=== PATIENT | male | born 1945 | race Caucasian/White ===

== ENCOUNTER 2017-12-17 14:09 | Inpatient (IN) | payer OTHER, MEDICARE ==
[~2017-12-17] VITALS: Ht 185.4 cm; Wt 117.0 kg
[~2017-12-17 14:09] MED LIST: ATORVASTATIN CA40 M1 PO; CLOPIDOGREL75 M1 PO; FUROSEMIDE20 M1 PO; GABAPENTIN300 M2 PO; LISINOPRIL-HCT1 EAC1 PO; METFORMIN HCL500 M3 PO; METOPROLOL TART25 M1 PO; MOVANTIK25 M1 PO; OMEPRAZOLE40 M1 PO; OXYCODONE HCL10 M2 PO; VERAPAMIL ER240 M1 PO
--- NOTE | 2017-12-17 15:39 | ED UPPER/LOWER EXTREMITY COMPL ---
History of Present Illness General Chief Complaint: Lower Extremity Problems Stated Complaint: PT IS HAVING PAIN THE RT LEG Source: patient, family, old records Exam Limitations: no limitations Vital Signs & Intake/Output Vital Signs & Intake/Output Vital Signs Date Time Temp Pulse Resp B/P B/P Pulse O2 O2 Flow FiO2 Mean Ox Delivery Rate 12/17 1414 98.0 63 20 108/64 93 Room Air Allergies Coded Allergies: No Known Allergies (08/11/16) Reconcile Medications Atorvastatin Calcium 40 MG TABLET 1 TAB PO DAILY HIGH CHOLESTEROL (Reported) Clopidogrel Bisulfate (Clopidogrel) 75 MG TABLET 1 TAB PO DAILY (Reported) Furosemide 20 MG TABLET 1 TAB PO DAILY FLUID (Reported) Gabapentin 300 MG CAPSULE 1 CAP PO TID NEUROPATHY (Reported) Lisinopril/Hydrochlorothiazide (Lisinopril-Hctz 20-25 MG Tab) 20 MG-25 MG TABLET 1 TAB PO DAILY HTN (Reported) Metformin HCl 500 MG TABLET 1 TAB PO BID DM (Reported) Metoprolol Tartrate 25 MG TABLET 1 TAB PO BID BP (Reported) Naloxegol Oxalate (Movantik) 25 MG TABLET 1 TAB PO DAILY CONSTIPATION Omeprazole 40 MG CAPSULE.DR 1 CAP PO DAILY GERD (Reported) Oxycodone HCl 10 MG TABLET 1 TAB PO 4XDP PAIN (Reported) Verapamil HCl (Verapamil ER) 240 MG TABLET.ER 1 TAB PO DAILY HTN (Reported) Triage Note: PT TO ED C/O RIGHT LEG PAIN X 3 WEEKS. HAS TAKEN OXYCODONE FOR PAIN "IT TAKES THE EDGE OFF". STATES RECENT FALL, BUT LEG WAS HURTING PRIOR TO FALL. Triage Nurses Notes Reviewed? yes Onset: Gradual Duration: day(s): Timing: recent history Severity: moderate Pain/Injury Location: Right: Hip, Leg. HPI: 72yo male with hx of chronic back pain, gout, DM, HTN, CAD s/p stents presents to ED complaining of pain in right hip and leg x 1.5 weeks. Patient states that he has had bilateral lower extremity swelling x 3 weeks. He also reports "gout flare up" for the past 1.5 weeks of his left great toe. He has a history of gout and states he had edema of lower legs relating to his gout in the past. Patient states that about 4 days ago he fell relating to his swelling, landing on his back. He states no significant musculoskeletal injury at that time. Patient reports his of bilateral peripheral neuropathy and diminished sensation in toes. Patient admits to recent intermittent dyspnea on exertion. Patient denies chest pain, fevers, chills, vomiting, hip/leg injury. (Mariann Wren) Past History Travel History Traveled to [place] past 21 day No Medical History Any Pertinent Medical History? see below for history Cardiovascular: hypertension, STENTS HIGH CHOLESTEROL Gastrointestinal: ACID REFLUX CONSTIPATION Musculoskeletal: gout Endocrine: DIABETIC Surgical History Surgical History: cardiac stents Psychosocial History What is your primary language Zambian Tobacco Use: Never used ETOH Use: denies use Illicit Drug Use: denies illicit drug use Family History Hx Contributory? No (Mariann Wren) Review of Systems Review of Systems Constitutional: Reports: no symptoms. EENTM: Reports: no symptoms. Respiratory: Reports: see HPI. Cardiovascular: Reports: see HPI. Gastrointestinal/Abdominal: Reports: no symptoms. Genitourinary: Reports: no symptoms. Musculoskeletal: Reports: see HPI. Skin: Reports: no symptoms. Neurological/Psychological: Reports: no symptoms. Hematologic/Endocrine: Reports: no symptoms. Immunological: Reports: no symptoms. All Other Systems: Reviewed and Negative (Mariann Wren) Physical Exam Physical Exam General Appearance: well developed/nourished, no apparent distress, alert, awake Head: atraumatic, normal appearance Eyes: Bilateral: normal appearance. Ears, Nose, Throat: hearing grossly normal Neck: normal inspection, supple, full range of motion Cardiovascular/Respiratory: normal breath sounds, regular rate/rhythm, no respiratory distress Back: normal inspection, normal range of motion Leg Left: 1-2+ pitting edema Leg Right: 1-2+ pitting edema Hip Left: normal range of motion, normal inspection Hip Right: lateral hip tenderness with ROM intact Knee Left: normal range of motion, normal inspection Knee Right: normal range of motion, normal inspection Foot Left: erythema to great toe without warmth or tenderness Foot Right: normal inspection, normal range of motion Neurologic/Tendon: sensation to foot and toes diminished, strength to bilateral lower extremities 5/5 equally Skin: warm/dry, erythema of L great toe (Mariann Wren) Progress Differential Diagnosis: cellulitis, CHF, contusion, DVT, gout, septic arthritis, sprain, MALIHA Plan of Care: Orders Procedure Date/time Status Heart Healthy Diet 12/18 B Active URINALYSIS 12/17 1807 Active Patient Data 12/17 1758 Active ED Holding Orders 12/17 1754 Active Admit to inpatient 12/17 1754 Active Vital Signs 12/17 1754 Active Code Status 12/17 1754 Active Add-on Test (ER Only) 12/17 1625 Active EKG 12/17 1625 Active TROPONIN LEVEL 12/17 1538 Complete COMPREHENSIVE METABOLIC PANEL 12/17 1538 Complete CBC WITHOUT DIFFERENTIAL 12/17 1538 Complete B-TYPE NATRIURETIC PEP (BNP) 12/17 1538 Complete Current Medications Sig/Fabian Start time Last Medication Dose Stop Time Status Admin Sodium Chloride 1,000 ML ONCE ONE 12/17 1745 AC (Normal Saline 0.9%) 12/18 0024 Laboratory Tests 12/17/17 1633: Anion Gap 17 H, Estimated GFR 31 L, BUN/Creatinine Ratio 33.3 H, Glucose 110 H, Calcium 8.4, Total Bilirubin 0.9, AST 35, ALT 39, Alkaline Phosphatase 58, Troponin I < 0.01, Tls-E-Szhhmctaryg Pept 118, Total Protein 7.9, Albumin 4.7, Globulin 3.2, Albumin/Globulin Ratio 1.5, CBC w Diff MAN DIFF ORDERED, RBC 4.39 L, MCV 84.6, MCH 27.7, MCHC 32.7 L, RDW 15.1 H, MPV 9.4, Gran % 78.1 H, Lymphocytes % 13.3 L, Monocytes % 4.9, Eosinophils % 3.1, Basophils % 0.6, Absolute Granulocytes 13.1 H, Segmented Neutrophils 76 H, Band Neutrophils 1, Absolute Lymphocytes 2.2, Lymphocytes 12 L, Monocytes 5, Absolute Monocytes 0.8 H, Eosinophils 3, Absolute Eosinophils 0.5, Basophils 3 H, Absolute Basophils 0.1, Platelet Estimate VERIFIED BY SMEAR, Normocytic RBCs VERIFIED, Normochromic RBCs VERIFIED, Fld Total RBCs Counted 100 Patient's imaging studies are WNL, no DVT, no CHF. Labs show MALIHA, new compared to prior labs. Patient reports no hx of known abnormal kidney function. Patient started on IV fluids. Discussed this patient with Dr. Guadalupe, patient requires hospital admission for MALIHA. Discussed with case management who recommend full admission. Spoke with hospitalist Dr. Knowles regarding this patient's general medicine admission. Diagnostic Imaging: Viewed by Me: Radiology Read, Ultrasound. Discussed w/RAD: Radiology Read, Ultrasound. Radiology Impression: PATIENT: APRYL MUÑIZ PRESENT AGE: 72 PATIENT ACCOUNT NO: [id number] : 43 LOCATION: [facility] ORDERING PHYSICIAN: Mariann GARCIA SERVICE DATE: 12/17/17 EXAM TYPE: US - US-EXT BILAT VENOUS DOPPLER EXAMINATION: US TRIPLEX OF LOWER EXTREMITIES, BILATERAL CLINICAL INFORMATION: This is a 72-year-old male with bilateral lower extremity pain. Edema and swelling. COMPARISON: None TECHNIQUE: Color-flow triplex imaging with spectral analysis and compression Doppler were performed on the lower extremities. The study was somewhat limited because of significant patient motion during the examination. FINDINGS: Respiratory variation, normal compression and augmented flow are noted throughout the lower extremities. The visualized common femoral vein, superficial femoral vein, profunda femoral vein, popliteal venous segments show no evidence of deep venous thrombosis. The calf veins could not be visualized. There is no Eastman's cyst. IMPRESSION: Normal triplex scan without evidence of deep venous thrombosis involving the lower extremities. DICTATED BY: Dave Locke MD DATE/TIME DICTATED:12/17/171639 TUBE TRAILER FILLER:KATALINA DATE/TIME TRANSCRIBED:1639 CONFIDENTIAL, DO NOT COPY WITHOUT APPROPRIATE AUTHORIZATION. < Electronically signed in Other Vendor System> SIGNED BY: Dave Locke MD 12/17/17 1645 CXR Impression: PATIENT: APRYL MUÑIZ PRESENT AGE : 72 PATIENT ACCOUNT NO: [id number] : 43 LOCATION: [facility] ORDERING PHYSICIAN: Mariann GARCIA SERVICE DATE: 12/17/17 EXAM TYPE: RAD - XRY-CHEST XRAY, TWO VIEWS EXAMINATION: CHEST 2 VIEWS CLINICAL INFORMATION: Congestion. Edema. COMPARISON: 09/08/2007. TECHNIQUE: PA and lateral views of the chest were obtained. FINDINGS: The cardiac silhouette is not enlarged. The mediastinal and hilar contours are unremarkable. There are neither pleural effusions nor pneumothoraces. There are no consolidations. The osseous structures are stable. IMPRESSION: No evidence for acute disease. DICTATED BY: Etienne Lynch MD DATE/TIME DICTATED:12/17/171627 TUBE TRAILER FILLER:[email or web address] DATE/TIME TRANSCRIBED:04/20/18 / 1628 CONFIDENTIAL, DO NOT COPY WITHOUT APPROPRIATE AUTHORIZATION. <Electronically signed in Other Vendor System> SIGNED BY: Etienne Lynch MD 12/17/17 1632 Initial ED EKG: sinus rhythm @83bpm, first degree AV block, nonspecific ST changes (Mariann Wren) Departure Departure Disposition: STILL A PATIENT Condition: Stable Referrals: Ever Jones APRN (PCP/Family) Departure Forms: Customer Survey General Discharge Information Admission Note Spoke With: Rajani Knowles MD Documentation of Exam: Documentation of any treatments & extenuating circumstances including Concerns Regarding Discharge (functional status, medication knowledge or non-compliance, living conditions, etc.) that warrant an admission rather than observation: [MALIHA with no known history of kidney disease requiring IV fludis, repeat labs, possible nephrology consult, premature discharge medically unsafe] (Mariann Wren) Departure Clinical Impression Primary Impression: MALIHA (acute kidney injury) Secondary Impressions: Pedal edema PA/DISSOLVER OPERATOR Co-Sign Statement Statement: ED Attending supervision documentation- [X] I saw and evaluated the patient. I have also reviewed all the pertinent lab results and diagnostic results. I agree with the findings and the plan of care as documented in the PA's/DISSOLVER OPERATOR's documentation. [X] I have reviewed the ED Record and agree with the PA's/DISSOLVER OPERATOR's documentation. [] Additions or exceptions (if any) to the PAs/DISSOLVER OPERATOR's note and plan are summarized below: [Patient to be admitted for acute renal injury. Patient does have pedal edema however he needs IV fluids at this time. Patient will need a renal consultation. High risk for early discharge.] (Anayeli IGNACIO,Prakash Jorgensen)
--- NOTE | 2017-12-17 16:32 | RADIOLOGY REPORT ---
EXAMINATION: CHEST 2 VIEWS CLINICAL INFORMATION: Congestion. Edema. COMPARISON: 09/08/2007. TECHNIQUE: PA and lateral views of the chest were obtained. FINDINGS: The cardiac silhouette is not enlarged. The mediastinal and hilar contours are unremarkable. There are neither pleural effusions nor pneumothoraces. There are no consolidations. The osseous structures are stable. IMPRESSION: No evidence for acute disease.
--- NOTE | 2017-12-17 16:45 | ULTRASOUND REPORT ---
EXAMINATION: US TRIPLEX OF LOWER EXTREMITIES, BILATERAL CLINICAL INFORMATION: This is a 72-year-old male with bilateral lower extremity pain. Edema and swelling. COMPARISON: None TECHNIQUE: Color-flow triplex imaging with spectral analysis and compression Doppler were performed on the lower extremities. The study was somewhat limited because of significant patient motion during the examination. FINDINGS: Respiratory variation, normal compression and augmented flow are noted throughout the lower extremities. The visualized common femoral vein, superficial femoral vein, profunda femoral vein, popliteal venous segments show no evidence of deep venous thrombosis. The calf veins could not be visualized. There is no Eastman's cyst. IMPRESSION: Normal triplex scan without evidence of deep venous thrombosis involving the lower extremities.
[2017-12-17 16:47] LABS: ABSOLUTE BASOPHIL COUNT 0.1 /CUMM (0.0-0.2); ABSOLUTE EOSINOPHIL COUNT 0.5 /CUMM (0.0-0.7); ABSOLUTE GRANULOCYTE CT 13.1 /CUMM (1.4-6.5); ABSOLUTE LYMPH COUNT 2.2 /CUMM (1.2-3.4); ABSOLUTE MONOCYTE COUNT 0.8 /CUMM (0.10-0.60); BASOPHIL % 0.6 % (0.0-2.0); EOSINOPHIL % 3.1 % (0-5); HEMATOCRIT 37.2 % (42-52); MEAN CORPUSCULAR HGB 27.7 PG (27.0-31.0); MEAN CORPUSCULAR HGB CONC 32.7 G/DL (33.0-37.0); MEAN CORPUSCULAR VOLUME 84.6 FL (80.0-94.0); MEAN PLATELET VOLUME 9.4 FL (7.4-10.4); PLATELET COUNT 264 /CUMM (130-400); RBC DISTRIBUTION WIDTH 15.1 % (11.5-14.5); RED BLOOD CELL CT 4.39 /CUMM (4.70-6.10); WHITE BLOOD CELL COUNT 16.7 /CUMM (4.8-10.8)
[2017-12-17 16:59] LABS: GRANULOCYTE % 78.1 % (42.2-75.2)
--- NOTE | 2017-12-17 17:59 | History & Physical ---
General Information and HPI MD Statement: I have seen and personally examined APRYL MUÑIZ and documented this H&P. The patient is a 72 year old M who presented with a patient stated chief complaint of [LEG PAIN]. Source of Information: patient Allergies/Medications Allergies: Coded Allergies: No Known Allergies (08/11/16) Home Med list Aspirin (Ecotrin*) 325 MG TABLET.DR 1 TAB PO QPM HEART/BLOOD (Reported) Atorvastatin Calcium 40 MG TABLET 1 TAB PO DAILY HIGH CHOLESTEROL (Reported) Buspirone HCl 5 MG TABLET 1-2 TAB PO PRN ANXIETY (Reported) Calcium (Elemental-Fr Calcarb) (Tums Ultra) 400 MG CALCIUM (1,000 MG) TAB.CHEW 1 TAB PO PRN GI (Reported) Clopidogrel Bisulfate (Clopidogrel) 75 MG TABLET 1 TAB PO DAILY (Reported) Furosemide 40 MG TABLET 1 TAB PO QAM DIURETIC (Reported) Gabapentin (Neurontin) 300 MG CAPSULE 1 CAP PO DAILY NERVE PAIN (Reported) Gluc Hunter/MSM/Magnesium/Vit C (Glucosamine Complex-MSM Cap) 1 EACH CAPSULE 2 CAP PO DAILY SUPPLEMENT (Reported) Lisinopril/Hydrochlorothiazide (Lisinopril-Hctz 20-25 MG Tab) 20 MG-25 MG TABLET 1 TAB PO BID BP (Reported) Melatonin (Unknown Strength) CAPSULE (Unknown Dose) PO QPM PRN SUPPLEMENT ( Reported) Menthol (Icy Hot No Mess) (Unknown Strength) LIQUID (Unknown Dose) TOP PRN PAIN (Reported) Metformin HCl 500 MG TABLET 1 TAB PO BID DM (Reported) Metoprolol Succinate 25 MG TAB 1 TAB PO DAILY HEART/BP (Reported) Multiple Vitamin (Multivitamins) 1 EACH TABLET 1 TAB PO DAILY SUPPLEMENT ( Reported) Naproxen Sodium (All Day Relief) 220 MG TABLET 1-2 TAB PO Q8-12H PRN PAIN/ INFLAMMATION (Reported) Moosup-3 Fatty Acids (Super Moosup-3) 1,000 MG CAPSULE 1 CAP PO TID SUPPLEMENT (Reported) Omeprazole 40 MG CAPSULE. 1 CAP PO DAILY GERD (Reported) Oxycodone HCl 10 MG TABLET 1 TAB PO Q4-6H PRN PAIN (Reported) Polyethylene Glycol 3350 (Miralax) 17 GRAM POWD.PACK 1 PAC PO PRN GI ( Reported) dissolve in water Sennosides (Senna) 8.6 MG TABLET 1 TAB PO BID GI (Reported) Past History Travel History Traveled to [place] past 21 day No Medical History Cardiovascular: hypertension, STENTS HIGH CHOLESTEROL Gastrointestinal: ACID REFLUX CONSTIPATION Musculoskeletal: gout Endocrine: DIABETIC Surgical History Surgical History: cardiac stents Past Family/Social History Psychosocial History ETOH Use: denies use Illicit Drug Use: denies illicit drug use Exam & Diagnostic Data Last 24 Hrs of Vital Signs/I&O Vital Signs Date Time Temp Pulse Resp B/P B/P Pulse O2 O2 Flow FiO2 Mean Ox Delivery Rate 12/17 1414 98.0 63 20 108/64 93 Room Air Intake & Output 12/17 1600 12/17 0800 12/17 0000 Intake Total Output Total Balance Patient 117.027 kg Weight Weight Estimated Measurement Method Core Measures/Misc (05/16) Acute Coronary Syndrome ACS Diagnosis: No Congestive Heart Failure Congestive Heart Failure Diagnosis No Cerebrovascular Accident CVA/TIA Diagnosis: No VTE (View Protocol) VTE Risk Factors Acute Medical Illness No Mechanical VTE Prophylaxis d/t N/A MechProphylax Ordered No VTE Pharm Prophylaxis d/t NA PharmProphylax ordered Sepsis (View protocol) Sepsis Present: No
--- NOTE | 2017-12-17 18:13 | History & Physical ---
Reji Welsh MD 12/17/171812: General Information and HPI Source of Information: patient History of Present Illness: Mr. Allen is a 72-year-old male with past medical history of coronary artery disease status post stents followed by Dr. Prieto, hypertension, hyperlipidemia , gout, diabetes mellitus complicated by peripheral neuropathy who presents with pain in his right leg. The patient says that he experiences electric-like pain that shoots down from his back to his right hip and right knee that is worse with flexion. The pain started couple months ago but has progressed significantly in the past few days. He also notes that he has been treating himself for gout in the left toe with 6 naproxen per day. He is also been falling more often recently because he is on these in his feet secondary to the neuropathy. He denies any loss of consciousness or head strike. He says he has not been drinking as much fluids recently. Review of systems also positive for shortness of breath, chills, fatigue, and floaters/dryness in the eyes. He is a never smoker, drinks alcohol socially, and denies recreational drug use. Allergies/Medications Allergies: Coded Allergies: No Known Allergies (08/11/16) Home Med list Aspirin (Ecotrin*) 325 MG TABLET.DR 1 TAB PO QPM HEART/BLOOD (Reported) Atorvastatin Calcium 40 MG TABLET 1 TAB PO DAILY HIGH CHOLESTEROL (Reported) Buspirone HCl 5 MG TABLET 1-2 TAB PO PRN ANXIETY (Reported) Calcium (Elemental-Fr Calcarb) (Tums Ultra) 400 MG CALCIUM (1,000 MG) TAB.CHEW 1 TAB PO PRN GI (Reported) Clopidogrel Bisulfate (Clopidogrel) 75 MG TABLET 1 TAB PO DAILY (Reported) Furosemide 40 MG TABLET 1 TAB PO QAM DIURETIC (Reported) Gabapentin (Neurontin) 300 MG CAPSULE 1 CAP PO DAILY NERVE PAIN (Reported) Gluc Hunter/MSM/Magnesium/Vit C (Glucosamine Complex-MSM Cap) 1 EACH CAPSULE 2 CAP PO DAILY SUPPLEMENT (Reported) Lisinopril/Hydrochlorothiazide (Lisinopril-Hctz 20-25 MG Tab) 20 MG-25 MG TABLET 1 TAB PO BID BP (Reported) Melatonin (Unknown Strength) CAPSULE (Unknown Dose) PO QPM PRN SUPPLEMENT ( Reported) Menthol (Icy Hot No Mess) (Unknown Strength) LIQUID (Unknown Dose) TOP PRN PAIN (Reported) Metformin HCl 500 MG TABLET 1 TAB PO BID DM (Reported) Metoprolol Succinate 25 MG TAB 1 TAB PO DAILY HEART/BP (Reported) Multiple Vitamin (Multivitamins) 1 EACH TABLET 1 TAB PO DAILY SUPPLEMENT ( Reported) Naproxen Sodium (All Day Relief) 220 MG TABLET 1-2 TAB PO Q8-12H PRN PAIN/ INFLAMMATION (Reported) Monroe-3 Fatty Acids (Super Monroe-3) 1,000 MG CAPSULE 1 CAP PO TID SUPPLEMENT (Reported) Omeprazole 40 MG CAPSULE.DR 1 CAP PO DAILY GERD (Reported) Oxycodone HCl 10 MG TABLET 1 TAB PO Q4-6H PRN PAIN (Reported) Polyethylene Glycol 3350 (Miralax) 17 GRAM POWD.PACK 1 PAC PO PRN GI ( Reported) dissolve in water Sennosides (Senna) 8.6 MG TABLET 1 TAB PO BID GI (Reported) Past History Travel History Traveled to [place] past 21 day No Medical History Cardiovascular: hypertension, STENTS HIGH CHOLESTEROL Gastrointestinal: ACID REFLUX CONSTIPATION Musculoskeletal: gout Endocrine: DIABETIC Surgical History Surgical History: cardiac stents Past Family/Social History Psychosocial History ETOH Use: denies use Illicit Drug Use: denies illicit drug use Review of Systems Review of Systems Constitutional: Reports: see HPI. EENTM: Reports: see HPI. Cardiovascular: Reports: no symptoms. Respiratory: Reports: see HPI. GI: Reports: no symptoms. Genitourinary: Reports: see HPI. Musculoskeletal: Reports: see HPI. Skin: Reports: no symptoms. Neurological/Psychological: Reports: no symptoms. Hematologic/Endocrine: Reports: no symptoms. Immunologic/Allergic: Reports: no symptoms. All Other Systems: Reviewed and Negative Exam & Diagnostic Data Last 24 Hrs of Vital Signs/I&O Vital Signs Date Time Temp Pulse Resp B/P B/P Pulse O2 O2 Flow FiO2 Mean Ox Delivery Rate 12/17 1414 98.0 63 20 108/64 93 Room Air Intake & Output 12/17 1600 12/17 0800 12/17 0000 Intake Total Output Total Balance Patient 117.027 kg Weight Weight Estimated Measurement Method Physical Exam General Appearance Alert, Oriented X3, Cooperative, No Acute Distress Skin No Rashes, No Breakdown, No Significant Lesion Cardiovascular Regular Rate, Normal S1, Normal S2 Lungs Clear to Auscultation Abdomen Normal Bowel Sounds, Soft, No Tenderness, obese Neurological Normal Speech, Strength at 5/5 X4 Ext, Normal Tone, Cranial Nerves 3-12 NL, absent senation below knees Extremities Left toe erythematous and warm. Straight leg raise positive on right. Rectal normal rectal tone Last 24 Hrs of Labs/[place]: Laboratory Tests 12/17/17 1633: Anion Gap 17 H, Estimated GFR 31 L, BUN/Creatinine Ratio 33.3 H, Glucose 110 H, Calcium 8.4, Total Bilirubin 0.9, AST 35, ALT 39, Alkaline Phosphatase 58, Troponin I < 0.01, Pop-Y-Bbrjxgslfcx Pept 118, Total Protein 7.9, Albumin 4.7, Globulin 3.2, Albumin/Globulin Ratio 1.5, CBC w Diff MAN DIFF ORDERED, RBC 4.39 L, MCV 84.6, MCH 27.7, MCHC 32.7 L, RDW 15.1 H, MPV 9.4, Gran % 78.1 H, Lymphocytes % 13.3 L, Monocytes % 4.9, Eosinophils % 3.1, Basophils % 0.6, Absolute Granulocytes 13.1 H, Segmented Neutrophils 76 H, Band Neutrophils 1, Absolute Lymphocytes 2.2, Lymphocytes 12 L, Monocytes 5, Absolute Monocytes 0.8 H, Eosinophils 3, Absolute Eosinophils 0.5, Basophils 3 H, Absolute Basophils 0.1, Platelet Estimate VERIFIED BY SMEAR, Normocytic RBCs VERIFIED, Normochromic RBCs VERIFIED, Fld Total RBCs Counted 100 Assessment/Plan Assessment: Mr. Allen is a 72-year-old male with past medical history of coronary artery disease status post stents followed by Dr. Prieto, hypertension, hyperlipidemia , gout, diabetes mellitus complicated by peripheral neuropathy who presents with pain in his right leg. On presentation, vital signs were T 98.0, HR 63, RR 20, BP 108/64, saturating 93 percent on room air. Laboratories were significant for white blood cell count 16.7, 1 band, hemoglobin 12.2, MCV 84.6, chloride 92, B1 70, creatinine 2.1 ( baseline 1.4 phosphorus sees, normal LFTs. Chest x-ray was negative. Ultrasound did not show DVT. He will be admitted to general medicine and treated for the following problems: 1. Acute kidney injury 2. Acute lumbosacral radiculopathy 3. Acute gout 4. Leukocytosis 5. Normocytic anemia #Acute kidney injury: Patient reports taking heavy doses of naproxen. He is also on diuretics and hasn't been drinking as well recently. This is likely ATN versus prerenal azotemia or a combination. -Avoid nephrotoxins -Gentle IV fluid hydration -TTE -Renal ultrasound in the morning -nephrology consult -Urinalysis and urine electrolytes #Acute lumbosacral radiculopathy: Patient seems to have a history of back pain with imaging of his back many years ago. However this seems like an acute worsening. He does not have any saddle anesthesia but he does have leukocytosis. -CT lumbar spine -Pain control -PT consults #Acute gout: Patient has erythematous left great toe with pain and history of gout. -Prednisone 40 mg daily for 5-10 days #Normocytic anemia: Likely chronic disease -Iron studies #Chronic medical problem: -Continue home medications DVT prophylaxis with heparin Consistent carbohydrate 2 diet Full code As Ranked By This Provider Problem List: 1. MALIHA (acute kidney injury) Core Measures/Misc (05/16) Acute Coronary Syndrome ACS Diagnosis: No Congestive Heart Failure Congestive Heart Failure Diagnosis No Cerebrovascular Accident CVA/TIA Diagnosis: No VTE (View Protocol) VTE Risk Factors Acute Medical Illness No Mechanical VTE Prophylaxis d/t N/A MechProphylax Ordered No VTE Pharm Prophylaxis d/t NA PharmProphylax ordered Sepsis (View protocol) Sepsis Present: No Nae Dunn MD 12/17/172022: Resident Review Statement Resident Statement: examined this patient, discussed with product management internship, agreed with product management internship, discussed with family, reviewed EMR data (avail), discussed with nursing , discussed with case mgmt, reviewed images, amended to note Other Findings: Patient is an 2-year-old male with past medical history significant for CAD status post PCI with stent placement, hypertension, hyperlipidemia, 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 Patient had opiate induced constipation for which he started taking more NSAIDS than opiates for the past 6 months, this is followed by increase in back pain for the past 3 months which got progressively worse in the past 6-8 weeks. As pain progressed he started taking more naproxen around 6 pills/day in the last few weeks. He also started to experience left great toe swelling and erythema for the past few weeks which are better with naproxen although persistent. He started noticing swelling in the legs and foot due to which he gradually decreased fluid intake and continue to take his diuretics. His pain got progressively worse for which he refilled his pain medications today and came to ER for further evaluation. He had a fall 3 days ago which appears purely mechanical, denies any head strike , did have lacerations on his left hand. Vital signs at admission Afebrile, heart rate 63, blood pressure 100/64 mmHg, saturating 93% on room air Physical exam Alert oriented 3 HEENT PERRLA and extraocular movements intact Heart S1-S2 normal Lungs clear to auscultation Abdomen distended, normal bowel sounds soft no tenderness Upper extremities - lacerations on left upper extremities Lower extremities - 4+ pitting edema, erythema of left great toe nontender Neuro - cranial struggle 12 intact, no sensory problems, strength 5 out of 5 Normal rectal tone. Straight leg raising test positive Labs White count 16.7, H&H 12/37, platelets 264. Sodium 137, potassium 4.2, chloride 92, anion gap 17, BUN/creatinine 70/2.1, GFR 31, glucose 110. Urinalysis is clear with pH 6.0, negative for WBC, protein, ketones, nitrates. 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 Associated with recent increased intake of NSAID (naproxen) due to opiate induced constipation. Due to worsening of lower extremities and difficulty with ambulation he decreased hydrating and continued to take diuretics and NSAIDs. He also had apparent mechanical fall recently 3 days ago during which he didnt hurt his head. VS are unremarkable. Physical exam significant for clear lungs, normal bowel sounds, 4+ pitting edema, left great toe erythema, intact rectal tone, skin lesions on left arm. Labs did show white count of 16 with agranulocytosis and 1 band. BUN/Cr 70/2.1 (1.4 on 02/12). GFR 31. clear UA. Plan Admit to general medicine floor Problem list 1. acute on chronic low back pain radiating to right hip 2. MALIHA on ? CKD in the setting of NSAID intake, dehydration 3. Left great toe erythema 4. Leukocytosis 5. HTN 6. CAD s/p PCI on DAPT 7. HLD Acute and chronic low back pain radiating to right hip History of DJD on chronically opiates. Increased NSAID intake due to opiate- induced constipation. He did have worsening of low back pain with radiation towards right hip and knee. He had intact rectal tone and he is straight leg raising test is positive. * CT lumbar spine without IV contrast * Oxycodone and Tylenol for pain * Aggressive bowel regimen to avoid constipation * Avoid NSAIDs Acute kidney injury Patient had a creatinine of 1.4/GFR 50 in 2016. He had a BUN/creatinine of 70/ 2.1 this admission. There are several reasons behind this including increased intake of NSAID, continuation of diuretics, decreased hydration. UA is clear * Received 1L of IV normal saline * Avoid nephrotoxic agents * Renal ultrasound tomorrow morning nothing by mouth tonight * Nephro consult in a.m. Left great toe erythema Probably secondary to crystal-induced arthropathy in the setting of dehydration and increased diuretic use. Patient is on lisinopril/hydrochlorothiazide 20/25 twice a day, furosemide 40 mg daily. He already had a lot of naproxen which helped with the pain. On examination tenderness at the mattress but nontender to palpation. * Check uric acid levels and left great toe x-ray * Prednisone taper CAD status post PCI on DAPT We will continue aspirin, Plavix, metoprolol succinate 25 daily. Echocardiogram for evaluation of ejection fraction given significant lower extremity edema. Diabetes Patient was on oral hypoglycemics metformin 500 twice a day. * ISS and accuchecks Hyperlipidemia Continue atorvastatin 40 mg daily ?? Prostate enlargement Patient had signs and symptoms of enlarged prostate like difficulty initiating and maintaining stream. * Obtain postvoidal residual volume DVT prophylaxis Subcutaneous heparin CODE STATUS Full code Obed IGNACIO, [facility] 12/17/17 2302: Attending MD Review Statement Attending Statement Attending MD Statement: examined this patient, discuss w/resident/PA/TAPE FOLDING MACHINE OPERATOR, agreed w/resident/PA/TAPE FOLDING MACHINE OPERATOR, discussed with family, reviewed images, amended to note Attending Assessment/Plan: 72 yo obese male with h/o CAD s/p stents, HTN, T2DM on insulin, peripheral neuropathy, gout, chronic back pain and sciatica on opiates, is here for evaluation of worsening right leg pain. Patient has severe degenerative disc disease with sciatica ongoing for many years, for which he follows pain management. He describes the leg pain like electric shocks running down the right leg, worse with lying down and walking, and better when he is sitting up with feet dangling down. He needs to keep changing his position and is unable to find a comfortable position. He sleeps on a chair/ recliner at night with feet down. These symptoms have acutely worsened over past 2 weeks. He fell 3 days ago without any head strike or LOC. He feels wobbly on his feet, so he uses a cane to walk and has to hold on to things to prevent a fall. He has chronic lower extremity edema for which he takes lasix, and this has progressively worsened as well. He is compliant with his lasix. Around November 27, he developed gout of the left great toe for which he self medicated with aleve (220 mg upto about 6 tabs a day). The great toe does not seem to be any better he fells. He tried to cut back on oxycodone as it causes constipation and tried to curb the pain with Aleve instead. He takes miralax to help with the constipation, but he feels a sense of incomplete evacuation. He denies stool incontinence. No recent antibiotic use. He c/o urinary symptoms urgency and hesitancy, and a feeling of incomplete emptying. He is yet to see a Urologist for possible BPH. This precludes him from drinking water. For the past 1 week, he has not been drinking enough liquids. He has had a poor appetite. Vitals stable. Exam: obese male in moderate distress due to pain, AAO, mucosa dry, PERRL, Chest clear, Heart S1S2 regular, Abd soft, obese, LE: 3++ pitting edema up to the knees, reduced sensation to bilateral feet 2/2 neuropathy, peripheral pulse palpable, Erythema noted to left great toe, not warm or tender. Bruise noted to left upper extremity 2/2 recent fall. SLR positive on the right. Rectal exam: intact tone. Labs: WBC: 16.7, band 1, AG 17, BUN 70, creat 2.1 (1.4 in 2016), bicarb 28, glucose 110, uric acid 11.2, trop neg. UA neg. CXR: no acute disease. LE doppler: no DVT. EKG: sinus rhythm first degree AV block, inferior Q waves, IVCD, Qtc 451 (no old EKG to compare). Assessment and plan: 1. Acute on chronic low back pain with worsening right sided sciatica/ radiculopathy 2. MALIHA on chronic renal insufficiency in the setting of excessive NSAID use, poor hydration and medications such as lasix, lisinopril-hctz and metformin. We also cannot rule out underlying diabetic or hypertensive nephrosclerosis with this creatinine possibly being a new baseline for him. 3. Bilateral lower extremity edema, ?dependent, no evidence of DVT or CHF 4. Left great toe gout attack, no evidence of cellulitis (not warm, or tender) 5. Type 2 diabetes on insulin with peripheral neuropathy 6. Leukocytosis, no source of infection 7. Symptoms suggestive of BPH - Admit to general medicine - Fall precautions - Pain management with oxycodone with good bowel regime, add lidoderm patch and tramadol as needed. Can use IV morphine only for severe pain. - Continue gabapentin (patient takes once daily, was on TID but reduced probably due to peripheral edema) - Avoid NSAIDs or nephrotoxic meds - Obtain CT lumbar spine - PT eval in AM - Patient will need Neurosurgery follow up as outpatient to consider discectomy - Initiate prednisone 40 mg for total of 10 days to treat the gout flare as NSAIDs are contraindicated due to MALIHA. Prednisone may also help with the radiculopathy, however I am worried about fluid retention with prednisone worsening his LE edema. - Please consult rheumatology if his gout does not improve. - Elevate lower extremities. - Check post-void residual, if high will place [place] - Initiate flomax daily to help with BPH symtpoms. Outpatient urology follow up. - Check urine lytes, renal ultrasound - Obtain ecocardiogram - Patient is receiving 1 bag normal saline, avoid fluids given LE edema. - Encourage PO intake - Recheck renal functions in AM to assess for improvement after IV fluids - Nephro consult in AM - Continue aspirin, plavix, metoprolol, omeprazole, statin and buspirone. DVT ppx Hep SC. Full code.
[2017-12-17] MEDS ORDERED: OXYCODONE HCL10 M2 PO (18:54)
[2017-12-17] MEDS ORDERED: NEURONTIN300 M1 PO (18:55)
[2017-12-17] MEDS ORDERED: LISINOPRIL-HCT1 EAC1 PO (18:56)
[2017-12-17] MEDS ORDERED: MELATONIN5 M5 PO (18:57)
[2017-12-17] MEDS ORDERED: ASPIRIN EC325 M2 PO (18:58)
[2017-12-17] MEDS ORDERED: SUPER OMEGA-31000 MG PO (18:59)
[2017-12-17] MEDS ORDERED: MULTIVITAMINS1 EAC9 PO (18:59)
[2017-12-17] MEDS ORDERED: MIRALAX17 G1 PO (19:00)
[2017-12-17] MEDS ORDERED: ALL DAY RELIEF220 MG PO (19:01)
[2017-12-17] MEDS ORDERED: GLUCOSAMINE CO1 EACH PO (19:02)
[2017-12-17] MEDS ORDERED: BUSPIRONE HCL5 M1 PO (19:03)
[2017-12-17] MEDS ORDERED: METOPROLOL SUCC25 M1 PO (19:05)
[2017-12-17] MEDS ORDERED: LASIX20 M1 PO (19:06)
[2017-12-17] MEDS ORDERED: FUROSEMIDE40 M1 PO (19:07)
[2017-12-17] MEDS ORDERED: SENNA8.6 M3 PO (19:07)
[2017-12-17] MEDS ORDERED: ICY HOT NO MESS73 ML TOP (19:08)
[2017-12-17] MEDS ORDERED: TUMS ULTRA400 M1 PO (19:09)
--- NOTE | 2017-12-17 20:43 | CT SCAN REPORT ---
EXAMINATION: CT LUMBAR SPINE WITHOUT CONTRAST CLINICAL INFORMATION: Lumbosacral radiculopathy. Assess for acute compression. COMPARISON: MRI scan of the lumbar spine 01/08/2014. TECHNIQUE: Helical non-contrast CT images were obtained through the lumbar spine and 1.25 and 2.5 mm axial reconstructions were reviewed along with sagittal and coronal MPRs. DLP: 1222.97 mGy-cm FINDINGS: There is a mild dextroscoliosis. The study redemonstrates the grade 1 anterolisthesis of L3 on L4. There is multilevel narrowing of intervertebral disc height between L1-L2 and L5-S1 with vacuum disc changes at these levels. Narrowing is most severe at L2-L3, L4-L5 and L5-S1. Vertebral body heights are maintained. No acute fractures are demonstrated. The sacroiliac joints and sacrum appear intact. There is sigmoid colon diverticulosis. There are atheromatous calcifications of the aorta and its branches. No aneurysms are demonstrated. An exophytic cyst is redemonstrated off the inferior left kidney. SPINAL LEVELS: T12-L1: There is mild bilateral facet arthropathy. Posterior disc contour is normal. There is no central stenosis or foraminal narrowing. L1-L2: There is mild bilateral facet arthropathy. There is a mild diffuse disc bulge. There is no central stenosis and the neural foramina are patent. L2-L3: There is moderate to severe bilateral facet arthropathy. There is calcification of the right ligamentum flavum. There is a central and left-sided posterior disc protrusion with a calcified annulus extending into the left neural foramen. There is narrowing of the subarticular recesses and there is moderate to severe central stenosis. L3-L4: There is moderate to severe bilateral facet arthropathy. There is unroofing of the disc as a result of the anterolisthesis. There are bilateral foraminal disc protrusions, more prominent on the right. There is narrowing of the subarticular recesses bilaterally. There is moderate to severe central stenosis. L4-L5: There is moderate to severe bilateral facet arthropathy. There is a broad-based posterior disc protrusion with a calcified annulus extending into the right greater than left neural foramina. There is likely impingement on the exiting right L4 nerve root. There is narrowing of the subarticular recesses bilaterally. There is mild central stenosis. L5-S1: There is a posterior disc osteophyte complex extending into the bilateral neural foramina with impingement on the exiting L5 nerve roots. There is marked narrowing of the subarticular recesses. There is no central stenosis. IMPRESSION: 1. There are no acute fractures or subluxations. 2. There is a chronic degenerative anterolisthesis of L3 on L4. There is unroofing of the disc as a result of the anterolisthesis. There is moderate to severe central stenosis and there are right greater than left foraminal disc protrusions. 3. There is moderate to severe bilateral facet arthropathy at L4-L5. The disc has a calcified annulus and extends into the right greater than left neural foramina. There is impingement on the exiting right L4 nerve root. There is mild central stenosis. 4. At L2-L3 there is moderate to severe facet arthropathy with calcification of the right ligamentum flavum. There is a central left-sided disc protrusion extending into the left neural foramen. There is moderate to severe central stenosis.
--- NOTE | 2017-12-17 21:55 | RADIOLOGY REPORT ---
EXAMINATION: XR FOOT, LEFT CLINICAL INFORMATION: Erythema. Swelling. Pain of the great toe. History of gout. COMPARISON: None TECHNIQUE: AP, lateral, and oblique views of the left foot. FINDINGS: There is swelling of the soft tissues of the forefoot. There is no soft tissue calcification. No bone erosion. No radiographic evidence of changes of gout. There is mild joint narrowing of the first MTP joint with minimal spurring at the margin of the metatarsal head and proximal phalanges. There is spurring of the talonavicular joint at the medial side of the foot. There is small spur at the posterior calcaneus at the insertion of the Achilles tendon. IMPRESSION: 1. Soft tissue swelling of the forefoot. 2. No radiographic evidence for gout. No soft tissue calcifications. There is mild joint narrowing of the first MTP joint degenerative joint disease.
[2017-12-17 22:04] VITALS: BP 118/60
--- NOTE | 2017-12-17 23:03 | Admission Certification ---
Admission Certification Certification Statement - As attending physician, I certify that at the time of - admission, based on clinical presentation, severity of - symptoms, need for further diagnostic testing and - therapeutic interventions, and risk of adverse outcomes - without in-hospital treatment, in my clinical assessment, - this patient requires an acute hospital stay for a minimum - of two nights or longer. I have also considered psychsocial - factors such as support system, advanced age, financial - issues, cognitive issues, and failed out-patient treatments, - past re-admission history, safety of patient, and lack of - compliance as applicable. Specific rationale supporting this admission is: Acute on chronic low back pain, sciatica, MALIHA on CKD.
--- NOTE | 2017-12-18 05:56 | PN- Housestaff ---
See Addendum Subjective Follow-up For: MALIHA, lumbosacral radiculopathy, gout Subjective: No overnight events. The patient slept very well actually feels better this morning. His pain is improved he is able tolerated. He is complaining of some gas pain but no shortness of breath. Review of Systems Constitutional: Reports: no symptoms. EENTM: Reports: no symptoms. Cardiovascular: Reports: no symptoms. Respiratory: Reports: no symptoms. Gastrointestinal: Reports: see HPI. Genitourinary: Reports: no symptoms. Musculoskeletal: Reports: no symptoms. Skin: Reports: no symptoms. Neurological/Psychological: Reports: no symptoms. Hematologic/Endocrine: Reports: no symptoms. Immunologic/Allergic: Reports: no symptoms. Objective Last 24 Hrs of Vital Signs/I&O Vital Signs Date Time Temp Pulse Resp B/P B/P Pulse O2 O2 Flow FiO2 Mean Ox Delivery Rate 12/18 2203 98.2 62 20 118/60 91 Room Air 12/17 1948 97.9 74 18 126/66 97 Room Air 12/17 1907 70 18 122/60 96 Room Air 12/17 1414 98.0 63 20 108/64 93 Room Air Intake & Output 12/18 0800 12/18 0000 12/17 1600 Intake Total Output Total 1250 Balance -1250 Output, Urine 1250 Patient 117.027 kg 117.027 kg Weight Weight Reported by Patient Estimated Measurement Method Physical Exam General Appearance: Alert, Oriented X3, Cooperative, No Acute Distress Cardiovascular: Regular Rate, Normal S1, Normal S2 Lungs: Clear to Auscultation Abdomen: Normal Bowel Sounds, Soft, No Tenderness Extremities: stable from last night Current Medications: Current Medications Sig/Fabian Start time Last Medication Dose Route Stop Time Status Admin Acetaminophen 1,000 MG Q8P PRN 12/17 1914 AC PO Aspirin 325 MG .STK-MED ONE 12/18 2115 DC PO 12/17 2116 Aspirin Buffered 325 MG QPM 12/17 2099 AC 12/17 PO 212 Atorvastatin Calcium 40 MG 1700 12/18 1700 AC PO Clopidogrel Bisulfate 75 MG DAILY 12/18 0900 AC PO Docusate Sodium 100 MG DAILY 12/17 2000 AC 12/17 PO 212 Gabapentin 300 MG DAILY 12/18 09 AC PO Heparin Sodium 5,000 UNIT Q8 12/17 2199 AC 12/18 (Porcine) SC 0439 Insulin Aspart 0 TIDAC 12/18 08 AC SC Metoprolol Succinate 25 MG DAILY 12/18 09 AC PO Metoprolol Tartrate 25 MG DAILY 12/18 09 CAN PO Omeprazole 40 MG DAILY AC 12/18 0700 AC 12/18 PO 0440 Oxycodone HCl 10 MG Q6P PRN 12/17 2014 AC 12/17 PO 225 Polyethylene Glycol 17 GM DAILY 12/18 09 AC PO Prednisone 0 .STK-MED ONE 12/17 193 DC PO Prednisone 40 MG DAILY 12/17 191 AC 12/17 PO 12/21 09 1927 Senna/Docusate Sodium 2 TAB DAILY 12/17 2000 AC 12/17 PO 212 Sodium Chloride 1,000 ML ONCE ONE 12/17 174 DC 12/17 IV 12/18 0024 1836 Last 24 Hrs of Lab/[place] Results Last 24 Hrs of Labs/Mics: Laboratory Tests 12/17/172010: Urine Color YEL, Urine Clarity CLEAR, Urine pH 6.0, Ur Specific [place] 1.015, Urine Protein NEG, Urine Ketones NEG, Urine Nitrite NEG, Urine Bilirubin NEG, Urine Urobilinogen 0.2, Ur Leukocyte Esterase NEG, Ur Microscopic EXAM NOT REQUIRED, Urine Hemoglobin NEG, Urine Glucose NEG 12/17/172010: Ur Random Creatinine 49.0, Ur Random Sodium 59, Ur Random Potassium 28.7, Fraction Sodium Excret 1.8 H 12/17/17 1633: Anion Gap 17 H, Estimated GFR 31 L, BUN/Creatinine Ratio 33.3 H, Glucose 110 H, Hemoglobin A1c Pending, Uric Acid 11.2 H, Calcium 8.4, Iron 55, TIBC 403, Ferritin 27.4, Total Bilirubin 0.9, AST 35, ALT 39, Alkaline Phosphatase 58, Troponin I < 0.01, Nyh-L-Wqidbktefbb Pept 118, Total Protein 7.9, Albumin 4.7, Globulin 3.2, Albumin/Globulin Ratio 1.5, CBC w Diff MAN DIFF ORDERED, RBC 4.39 L, MCV 84.6, MCH 27.7, MCHC 32.7 L, RDW 15.1 H, MPV 9.4, Gran % 78.1 H, Lymphocytes % 13.3 L, Monocytes % 4.9, Eosinophils % 3.1, Basophils % 0.6, Absolute Granulocytes 13.1 H, Segmented Neutrophils 76 H, Band Neutrophils 1, Absolute Lymphocytes 2.2, Lymphocytes 12 L, Monocytes 5, Absolute Monocytes 0.8 H, Eosinophils 3, Absolute Eosinophils 0.5, Basophils 3 H, Absolute Basophils 0.1, Platelet Estimate VERIFIED BY SMEAR, Normocytic RBCs VERIFIED, Normochromic RBCs VERIFIED, Fld Total RBCs Counted 100 Assessment/Plan Assessment: Mr. Allen is a 72-year-old male with past medical history of coronary artery disease status post stents followed by Dr. Prieto, hypertension, hyperlipidemia , gout, diabetes mellitus complicated by peripheral neuropathy who presented with pain in his right leg. Problem list: 1. Acute kidney injury 2. Acute lumbosacral radiculopathy 3. Acute gout 4. Leukocytosis 5. Normocytic anemia #Acute kidney injury: Patient reports taking heavy doses of naproxen. He is also on diuretics and hasn't been drinking as well recently. FENA 1.8, indicating either prerenal or ATN. -Avoid nephrotoxins -Gentle IV fluid hydration -TTE -Renal ultrasound -Appreciate nephrology recommendations -Urinalysis and urine electrolytes #Acute lumbosacral radiculopathy: Patient seems to have a history of back pain with imaging of his back many years ago. However this seems like an acute worsening. He does not have any saddle anesthesia but he does have leukocytosis. CT imaging did not show any acute cord compression. -Pain control -PT consult #Acute gout: Patient has erythematous left great toe with pain and history of gout. X-ray did not show any soft tissue changes. Uric acid is elevated. -Prednisone 40 mg daily for 5-10 days #Normocytic anemia: Likely chronic disease. Iron studies normal. -Continue to monitor #Chronic medical problem: -Continue home medications DVT prophylaxis with heparin Consistent carbohydrate 2 diet Full code Problem List: 1. MALIHA (acute kidney injury) Pain Ratin Pain Location: no Pain Goal: Remain pain free Pain Plan: see a/p Tomorrow's Labs & Rationales: cbc, bep
[2017-12-18 07:04] VITALS: BP 100/60
[2017-12-18 08:36] LABS: ABSOLUTE BASOPHIL COUNT 0 /CUMM (0.0-0.2); ABSOLUTE EOSINOPHIL COUNT 0 /CUMM (0.0-0.7); ABSOLUTE GRANULOCYTE CT 11.3 /CUMM (1.4-6.5); ABSOLUTE LYMPH COUNT 0.9 /CUMM (1.2-3.4); ABSOLUTE MONOCYTE COUNT 0.3 /CUMM (0.10-0.60); BASOPHIL % 0 % (0.0-2.0); EOSINOPHIL % 0 % (0-5); GRANULOCYTE % 90.5 % (42.2-75.2); MEAN CORPUSCULAR HGB 27.9 PG (27.0-31.0); MEAN CORPUSCULAR HGB CONC 33.5 G/DL (33.0-37.0); MEAN CORPUSCULAR VOLUME 83.1 FL (80.0-94.0); MEAN PLATELET VOLUME 9.9 FL (7.4-10.4); PLATELET COUNT 235 /CUMM (130-400); RBC DISTRIBUTION WIDTH 14.5 % (11.5-14.5); RED BLOOD CELL CT 3.84 /CUMM (4.70-6.10)
[2017-12-18 09:35] LABS: HEMATOCRIT 31.9 % (42-52)
[2017-12-18 10:34] LABS: WHITE BLOOD CELL COUNT 12.4 /CUMM (4.8-10.8)
--- NOTE | 2017-12-18 12:27 | Cons- Nephrology ---
General Information and HPI Consulting Request Date of Consult: 12/18/17 Requested By: Obed IGNACIO,Walt Reason for Consult: MALIHA on CKD Source of Information: patient, family, old records Exam Limitations: no limitations History of Present Illness: The patient is a 72-year-old male with a history of chronic kidney disease stage III (this was unknown to the patient however his baseline creatinine runs 1.4- 1.5 on old labs), coronary artery disease with prior stents, gout, degenerative disc disease, hypertension, hyperlipidemia, diabetes with neuropathy, who presented to the hospital yesterday with 2 complaints, one being 1 week of right leg pain, and the second being 2 weeks of bilateral lower edema. He thinks he had a gout attack in his left foot 2 weeks ago; this pain has resolved. For the right leg pain and recent left foot pain he's been taking high-dose naproxen, up to 6 tablets per day over the past couple weeks. He was noted to have a creatinine level of 2.1 on admission with a BUN of 70, both higher than his baseline. BUN and creatinine are improving today but not yet back to baseline. Chest x-ray revealed no acute process. Motion of any Dopplers were negative for DVT. Urinalysis reveals no proteinuria hematuria or pyuria. Fractional solution of sodium was 1.8% however of note the patient is on both Lasix and hydrochlorothiazide as an outpatient, both which have been held, as well as his AMY inhibitor which has been held.. Denies recent contrast exposure, or antibiotic exposure. CT of the spine without contrast revealed extensive degenerative disc disease. Renal ultrasound was done this morning and results are pending. Allergies/Medications Allergies: Coded Allergies: No Known Allergies (08/11/16) Home Med List: Aspirin (Ecotrin*) 325 MG TABLET.DR 1 TAB PO QPM HEART/BLOOD (Reported) Atorvastatin Calcium 40 MG TABLET 1 TAB PO DAILY HIGH CHOLESTEROL (Reported) Buspirone HCl 5 MG TABLET 1-2 TAB PO PRN ANXIETY (Reported) Calcium (Elemental-Fr Calcarb) (Tums Ultra) 400 MG CALCIUM (1,000 MG) TAB.CHEW 1 TAB PO PRN GI (Reported) Clopidogrel Bisulfate (Clopidogrel) 75 MG TABLET 1 TAB PO DAILY (Reported) Furosemide 40 MG TABLET 1 TAB PO QAM DIURETIC (Reported) Gabapentin (Neurontin) 300 MG CAPSULE 1 CAP PO DAILY NERVE PAIN (Reported) Gluc Hunter/MSM/Magnesium/Vit C (Glucosamine Complex-MSM Cap) 1 EACH CAPSULE 2 CAP PO DAILY SUPPLEMENT (Reported) Lisinopril/Hydrochlorothiazide (Lisinopril-Hctz 20-25 MG Tab) 20 MG-25 MG TABLET 1 TAB PO BID BP (Reported) Melatonin (Unknown Strength) CAPSULE (Unknown Dose) PO QPM PRN SUPPLEMENT ( Reported) Menthol (Icy Hot No Mess) (Unknown Strength) LIQUID (Unknown Dose) TOP PRN PAIN (Reported) Metformin HCl 500 MG TABLET 1 TAB PO BID DM (Reported) Metoprolol Succinate 25 MG TAB 1 TAB PO DAILY HEART/BP (Reported) Multiple Vitamin (Multivitamins) 1 EACH TABLET 1 TAB PO DAILY SUPPLEMENT ( Reported) Naproxen Sodium (All Day Relief) 220 MG TABLET 1-2 TAB PO Q8-12H PRN PAIN/ INFLAMMATION (Reported) Palms-3 Fatty Acids (Super Palms-3) 1,000 MG CAPSULE 1 CAP PO TID SUPPLEMENT (Reported) Omeprazole 40 MG CAPSULE.DR 1 CAP PO DAILY GERD (Reported) Oxycodone HCl 10 MG TABLET 1 TAB PO Q4-6H PRN PAIN (Reported) Polyethylene Glycol 3350 (Miralax) 17 GRAM POWD.PACK 1 PAC PO PRN GI ( Reported) dissolve in water Sennosides (Senna) 8.6 MG TABLET 1 TAB PO BID GI (Reported) Current Medications: Current Medications Sig/Fabian Start time Last Medication Dose Route Stop Time Status Admin Acetaminophen 1,000 MG Q8P PRN 12/17 1914 AC PO Aspirin 325 MG .STK-MED ONE 12/18 2115 DC PO 12/17 2116 Aspirin Buffered 325 MG QPM 12/17 2099 AC 12/17 PO 2124 Atorvastatin Calcium 40 MG 1700 12/18 1700 AC PO Clopidogrel Bisulfate 75 MG DAILY 12/18 0900 AC 12/18 PO 0930 Docusate Sodium 100 MG DAILY 12/17 2000 AC 12/18 PO 0933 Gabapentin 300 MG DAILY 12/18 09 AC 12/18 PO 0930 Heparin Sodium 5,000 UNIT Q8 12/17 2200 AC 12/18 (Porcine) SC 0439 Insulin Aspart 0 TIDAC 12/18 0800 AC SC Metoprolol Succinate 25 MG DAILY 12/18 0900 AC 12/18 PO 0930 Metoprolol Tartrate 25 MG DAILY 12/18 899 CAN PO Omeprazole 40 MG DAILY AC 12/18 07 AC 12/18 PO 0440 Oxycodone HCl 10 MG Q6P PRN 12/17 2014 12/18 PO 0930 Polyethylene Glycol 17 GM DAILY 12/18 09 12/18 PO 0929 Prednisone 0 .STK-MED ONE 12/17 1932 DC PO Prednisone 40 MG DAILY 12/17 191 AC 12/18 PO 12/21 0901 0930 Senna/Docusate Sodium 2 TAB DAILY 12/17 2000 12/18 PO 0930 Sodium Chloride 1,000 ML ONCE ONE 12/17 1745 DC 12/17 IV 12/18 0024 1836 Review of Systems Review of Systems: Gen: neg fever, chills, nightsweats, wt loss Skin: neg rash, pruritus Eye: neg visual changes, diplopia ENT: neg hearing changes, rhinitus CV: neg CP, SOB, JAVED, PND, orthopnea +edema Pulm: +cough, no SOB/sputum GI: neg nausea, vomiting, diarrhea, abdominal pain, hematemesis, BRBPR : neg dysuria, frequency, urgency, hematuria, foamy urine, nocturia Musculoskeletal: neg myalgias, arthralgias. Did have L 1st toe pain 2 weeks ago Neuro: +pain down rt leg, mostly in thigh/upper leg Psych: neg depression, mental status changes Heme: neg bruising, easy bleeding, clots Past History Travel History Traveled to [place] past 21 day No Medical History Blood Transfusion Hx: No Neurological: NONE EENT: NONE Cardiovascular: hypertension, STENTS Respiratory: NONE Gastrointestinal: ACID REFLUX CONSTIPATION Hepatic: NONE Renal: NONE Musculoskeletal: gout Psychiatric: NONE Endocrine: DIABETIC Blood Disorders: NONE Cancer(s): NONE Surgical History Surgical History: cardiac stents Psychosocial History Where Do You Live? Home Services at Home: None Smoking Status: Never Smoked ETOH Use: denies use Illicit Drug Use: denies illicit drug use Exam & Diagnostic Data Vital Signs and I&O Vital Signs Date Time Temp Pulse Resp B/P B/P Pulse O2 O2 Flow FiO2 Mean Ox Delivery Rate 12/18 929 70 110/68 12/18 0704 97.8 70 20 100/60 94 Room Air 12/174 98.2 62 20 118/60 91 Room Air 12/178 97.9 74 18 126/66 97 Room Air 12/17 1907 70 18 122/60 96 Room Air 12/17 1414 98.0 63 20 108/64 93 Room Air Intake & Output 12/18 1600 12/18 0400 12/17 1600 12/17 0400 12/16 1600 12/16 0400 Intake Total 750 Output Total 700 1250 Balance 50 -1250 Intake, IV 750 Output, Urine 700 1250 Patient 258 lb 258 lb Weight Weight Reported by Patient Estimated Measurement Method Physical Exam: General: NAD, A+O x3. HEENT: NC/AT. No icterus. Moist mucosa Neck: negative for YOUSIF, JVD CV: RRR, no m/r/g Pulm: CTAB, +wheeze L base Abd: soft, NT obese Lower Ext: 2+ edema. pedal and LE edema. L 1st toe nontender but discolored. toes/ankles nontender. Upper Ext: no AVFs or AVGs Back: negative for CVA tenderness Neuro: neg tremor, asterixis. straight leg test negative Skin: no rash, jaundice : no ceballos catheter Assessment/Plan Assessment/Recommendations Assessment: CKD stage 3: Likely due to HTN. Lack of proteinuria points away from diabetic nephropathy. MALIHA: Likely NSAID induced with prerenal factors. Agree with holding AMY-I and diuretics for now but like can be resumed soon (need to r/o obstruction 1st; renal US pending) and ideally allow creat to return to baseline. Edema: May be NSAID induced, but echo warranted. UA negative for proteinuria so this is not nephrotic syndrome. Dopplers of legs negative for DVT. hyperuricemia, h/o gout: Last flair 2 weeks ago. Do not suspect active flair; toes & feet while discolored are non-tender. Eessential to avoid NSAIDS. Suggest renal dose allopurinol with colchicine bridge. Rt leg pain: Sciatica? CT spine reveals significant degenerative disk disease Recommendations: f/up renal US echo allopurinol 100 mg/day colchicine bridge (0.6 mg/day x2 weeks then stop and change to prn gout flair) hold diuretics & AMY-I for now as above & considering resuming soon as above thank you for the consult Michael Cope MD
[2017-12-18 15:06] VITALS: BP 112/64
--- NOTE | 2017-12-18 16:03 | ULTRASOUND REPORT ---
EXAMINATION: US RETROPERITONEAL COMPLETE (RENAL) CLINICAL INFORMATION: Acute kidney injury. COMPARISON: Renal ultrasound 09/25/2015. TECHNIQUE: Real-time imaging of the kidneys and bladder. FINDINGS: RIGHT KIDNEY: 11.7 x 6.2 x 5.5 cm (SAG x AP x TRV). The kidney is normal in size, contour, and echogenicity. Renal cortical thickness is normal. No calculi or focal parenchymal lesions. No hydronephrosis. LEFT KIDNEY: 13.4 x 5.9 x 4.4 cm (SAG x AP x TRV) which is mildly prominent in size but unchanged from prior examination. The kidney is normal in size, contour, and echogenicity. Renal cortical thickness is normal. No calculi or focal parenchymal lesions. No hydronephrosis. BLADDER: Unremarkable. ADDITIONAL FINDINGS: The prostate is mildly prominent measuring up to 3.0 4.7 x 3.2 cm. IMPRESSION: Stable appearance of the kidneys. No hydronephrosis or ureteral obstruction.
[2017-12-18 23:43] VITALS: BP 110/56
[2017-12-19 07:29] VITALS: BP 120/83
--- NOTE | 2017-12-19 08:25 | PN- Housestaff ---
[place] IGNACIO,[facility] 12/19/17 0825: Subjective Follow-up For: MALIHA lumbosacral radiculopathy gout Subjective: No acute events overnight. Patient continues to have radiculopathy pain of the right side. States that his gout pain is improved. Review of Systems Constitutional: Reports: see HPI. Objective Last 24 Hrs of Vital Signs/I&O Vital Signs Date Time Temp Pulse Resp B/P B/P Pulse O2 O2 Flow FiO2 Mean Ox Delivery Rate 12/20 2215 51 12/20 2207 98.1 49 20 128/80 95 Room Air 12/19 1600 Room Air 12/19 1450 97.6 58 20 121/62 94 Room Air 12/19 0848 60 120/83 12/19 0729 97.3 52 20 120/83 98 Room Air 12/19 0000 Room Air Intake & Output 12/19 1600 12/19 0800 12/19 0000 Intake Total 1000 240 240 Output Total 1500 1275 Balance -500 -1035 240 Intake, Oral 1000 240 240 Output, Urine 1500 1275 Physical Exam General Appearance: Alert, Oriented X3, Cooperative, Mild Distress Cardiovascular: Regular Rate, Normal S1, Normal S2 Lungs: Clear to Auscultation, Normal Air Movement Abdomen: Normal Bowel Sounds, Soft, No Tenderness Extremities: LE swelling but no pitting edema, no back tenderness, no ankle tenderness Vascular: 2+ radial pulses Current Medications: Current Medications Sig/Fabian Start time Last Medication Dose Route Stop Time Status Admin Acetaminophen 1,000 MG Q8P PRN 12/17 191 AC PO Allopurinol 100 MG DAILY 12/18 1704 AC 12/19 PO 0848 Aspirin Buffered 325 MG QPM 12/17 2100 AC 12/19 PO 2022 Atorvastatin Calcium 40 MG 1700 12/18 1700 AC 12/19 PO 1629 Clopidogrel Bisulfate 75 MG DAILY 12/18 09 AC 12/19 PO 0848 Colchicine 600 MCG DAILY 12/18 171 AC 12/19 PO 0847 Docusate Sodium 100 MG DAILY 12/17 2000 AC 12/19 PO 0847 Gabapentin 300 MG DAILY 12/18 09 AC 12/19 PO 0848 Guaifenesin 600 MG Q12 12/19 2111 AC 12/19 PO 2022 Heparin Sodium 5,000 UNIT Q8 12/17 2199 AC 12/19 (Porcine) SC 2131 Insulin Aspart 0 TIDAC 12/18 0800 AC 12/19 SC 1657 Lidocaine 1 PAT DAILY 12/19 1430 AC 12/19 EXT 1629 Metoprolol Succinate 25 MG DAILY 12/18 09 AC 12/19 PO 0848 Omeprazole 40 MG DAILY AC 12/18 07 AC 12/19 PO 0629 Oxycodone HCl 10 MG Q6P PRN 12/17 2014 AC 12/19 PO 2022 Polyethylene Glycol 17 GM DAILY 12/18 09 AC 12/19 PO 0847 Senna/Docusate Sodium 2 TAB DAILY 12/17 2000 AC 12/19 PO 0848 Assessment/Plan Assessment: 72-year-old male with past medical history of coronary artery disease status post stents followed by Dr. Prieto, hypertension, hyperlipidemia, gout, diabetes mellitus complicated by peripheral neuropathy who presented with pain in his right leg. Problem list: 1. Acute kidney injury 2. Acute lumbosacral radiculopathy 3. Acute gout 4. Leukocytosis 5. Normocytic anemia #Acute kidney injury: Patient reports taking heavy doses of naproxen. He is also on diuretics and hasn't been drinking as well recently. FENA 1.8, indicating either prerenal or ATN. Renal US: No hydronephrosis or ureteral obstruction. -MALIHA improving. Creatinine 1.5 -Avoid nephrotoxins -Gentle IV fluid hydration -TTE -Appreciate nephrology recommendations -Urinalysis and urine electrolytes #LE swelling Ultrasound negative for DVT -Obtain echocardiogram #Acute lumbosacral radiculopathy: Patient seems to have a history of back pain with imaging of his back many years ago. However this seems like an acute worsening. He does not have any saddle anesthesia but he does have leukocytosis. CT imaging did not show any acute cord compression. -Pain control, added lidocaine patch -PT consult #Acute gout: Patient has erythematous left great toe with pain and history of gout. X-ray did not show any soft tissue changes. Uric acid is elevated. -Discontinued prednisone -Continue colchicine and allopurinol #Normocytic anemia: Likely chronic disease. Iron studies normal. -Continue to monitor #Chronic medical problem: -Continue home medications DVT prophylaxis with heparin Consistent carbohydrate 2 diet Full code Problem List: 1. MALIHA (acute kidney injury) 2. Leg edema 3. Radiculopathy 4. Gout Pain Ratin Pain Location: ankle Pain Goal: Pain 4 or less Pain Plan: pathway Tomorrow's Labs & Rationales: cbc bep Rajani Knowles 12/19/17 1244: Attending MD Review Statement Attending Statement Attending MD Statement: examined this patient, discuss w/resident/PA/SAIL MAKER, agreed w/resident/PA/SAIL MAKER, discussed with family, reviewed EMR data (avail), discussed with nursing, discussed with case mgmt, reviewed images, amended to note Attending Assessment/Plan: Patient admitted here with MALIHA on CKD and b/l lower extremity swelling. His creatinine function has improved. Nephrology f/u and c/w clochicine/allopurinol for recent gout attack. No significant proteinuria. Renal USG no hydronephrosis/ stones. His back pain is controlled and has degenrative disc disease with radiculopathy which needs follow up outpatient. Avoid NSAIDS, jt i, diuretics for now. Obtain ECHO. USG negative for DVT. gi/dvt prophyalxis
[2017-12-19 08:28] LABS: ABSOLUTE BASOPHIL COUNT 0 /CUMM (0.0-0.2); ABSOLUTE EOSINOPHIL COUNT 0.1 /CUMM (0.0-0.7); ABSOLUTE GRANULOCYTE CT 9.3 /CUMM (1.4-6.5); ABSOLUTE LYMPH COUNT 3.2 /CUMM (1.2-3.4); ABSOLUTE MONOCYTE COUNT 0.8 /CUMM (0.10-0.60); BASOPHIL % 0.3 % (0.0-2.0); GRANULOCYTE % 68.8 % (42.2-75.2); HEMATOCRIT 32.1 % (42-52); MEAN CORPUSCULAR HGB 28.1 PG (27.0-31.0); MEAN CORPUSCULAR HGB CONC 33.6 G/DL (33.0-37.0); MEAN CORPUSCULAR VOLUME 83.4 FL (80.0-94.0); MEAN PLATELET VOLUME 9.8 FL (7.4-10.4); PLATELET COUNT 246 /CUMM (130-400); RBC DISTRIBUTION WIDTH 14.9 % (11.5-14.5); RED BLOOD CELL CT 3.85 /CUMM (4.70-6.10); WHITE BLOOD CELL COUNT 13.4 /CUMM (4.8-10.8)
[2017-12-19 14:50] VITALS: BP 121/62
[2017-12-19 22:08] VITALS: BP 128/80
[2017-12-20 05:58] VITALS: BP 152/74
--- NOTE | 2017-12-20 07:00 | PN- Housestaff ---
See Addendum Subjective Follow-up For: Acute kidney injury, lumbosacral radiculopathy, gout Subjective: No overnight events. Patient has some mild pain in his right leg from the sciatica but otherwise feels better than when he came in. He has no chest pain, shortness breath, bowel pain, or other complaints. Review of Systems Constitutional: Reports: no symptoms. EENTM: Reports: no symptoms. Cardiovascular: Reports: no symptoms. Respiratory: Reports: no symptoms. Gastrointestinal: Reports: no symptoms. Genitourinary: Reports: no symptoms. Musculoskeletal: Reports: see HPI. Skin: Reports: no symptoms. Neurological/Psychological: Reports: no symptoms. Hematologic/Endocrine: Reports: no symptoms. Immunologic/Allergic: Reports: no symptoms. Objective Last 24 Hrs of Vital Signs/I&O Vital Signs Date Time Temp Pulse Resp B/P B/P Pulse O2 O2 Flow FiO2 Mean Ox Delivery Rate 12/20 0558 97.5 52 20 152/74 95 12/20 0000 Room Air 95% 12/19 2216 51 12/19 2208 98.1 49 20 128/80 95 Room Air 12/19 1600 Room Air 12/19 1450 97.6 58 20 121/62 94 Room Air 12/19 0848 60 120/83 12/19 0729 97.3 52 20 120/83 98 Room Air Intake & Output 12/20 0800 12/20 0000 12/19 1600 Intake Total 240 2000 1000 Output Total 600 1900 1500 Balance -360 100 -500 Intake, Oral 240 2000 1000 Output, Urine 600 1900 1500 Physical Exam General Appearance: Alert, Oriented X3, Cooperative, No Acute Distress Cardiovascular: Regular Rate, Normal S1, Normal S2 Lungs: Clear to Auscultation Abdomen: Normal Bowel Sounds, Soft, No Tenderness Extremities: Normal Pulses, mild edema Current Medications: Current Medications Sig/Fabian Start time Last Medication Dose Route Stop Time Status Admin Acetaminophen 1,000 MG Q8P PRN 12/17 1915 AC PO Allopurinol 100 MG DAILY 12/18 1704 AC 12/19 PO 0848 Aspirin Buffered 325 MG QPM 12/17 2100 AC 12/19 PO 202 Atorvastatin Calcium 40 MG 1700 12/18 1700 AC 12/19 PO 1629 Clopidogrel Bisulfate 75 MG DAILY 12/18 0900 AC 12/19 PO 0848 Colchicine 600 MCG DAILY 12/18 1715 AC 12/19 PO 0847 Docusate Sodium 100 MG DAILY 12/17 2000 AC 12/19 PO 0847 Gabapentin 300 MG DAILY 12/18 09 AC 12/19 PO 0848 Guaifenesin 600 MG Q12 12/19 2111 AC 12/19 PO 2022 Heparin Sodium 5,000 UNIT Q8 12/17 2200 AC 12/20 (Porcine) SC 0527 Insulin Aspart 0 TIDAC 12/18 08 AC 12/19 SC 1657 Lidocaine 1 PAT DAILY 12/19 1430 AC 12/19 EXT 1629 Metoprolol Succinate 25 MG DAILY 12/18 09 AC 12/19 PO 0848 Omeprazole 40 MG DAILY AC 12/18 07 AC 12/20 PO 0527 Oxycodone HCl 10 MG Q6P PRN 12/17 2014 12/20 PO 0237 Polyethylene Glycol 17 GM DAILY 12/18 09 AC 12/19 PO 0847 Senna/Docusate Sodium 2 TAB DAILY 12/17 2000 AC 12/19 PO 0848 Last 24 Hrs of Lab/[place] Results Last 24 Hrs of Labs/Mics: Laboratory Tests 12/19/17 0705: Anion Gap 11, Estimated GFR 46 L, BUN/Creatinine Ratio 36.0 H, CBC w Diff NO MAN DIFF REQ, RBC 3.85 L, MCV 83.4, MCH 28.1, MCHC 33.6, RDW 14.9 H, MPV 9.8, Gran % 68.8, Lymphocytes % 23.9, Monocytes % 6.0, Eosinophils % 1.0, Basophils % 0.3, Absolute Granulocytes 9.3 H, Absolute Lymphocytes 3.2, Absolute Monocytes 0.8 H, Absolute Eosinophils 0.1, Absolute Basophils 0 Assessment/Plan Assessment: Mr. Allen is a 72-year-old male with past medical history of coronary artery disease status post stents followed by Dr. Prieto, hypertension, hyperlipidemia , gout, diabetes mellitus complicated by peripheral neuropathy who presented with pain in his right leg. Problem list: 1. Acute kidney injury 2. Acute lumbosacral radiculopathy 3. Acute gout 4. Leukocytosis 5. Normocytic anemia #Acute kidney injury: Patient reported taking heavy doses of naproxen. He is also on diuretics and hasn't been drinking as well recently. FENA 1.8, indicating either prerenal or ATN. Nephrology evaluated and think this is likely CKD stage 3 in the setting of NSAID induced nephropathy. Renal ultrasound showed no obstruction. He can be discharged today. -Avoid nephrotoxins/NSAIDs -Appreciate nephrology recommendations -Outpatient follow-up with nephrology #Acute lumbosacral radiculopathy: Patient seems to have a history of back pain with imaging of his back many years ago. However this seemed like an acute worsening. He did not have any saddle anesthesia but he does have leukocytosis. CT imaging did not show any acute cord compression. -Pain control -PT consult #Acute gout: Patient had erythematous left great toe with pain and history of gout. X-ray did not show any soft tissue changes. Uric acid is elevated. -Continue colchicine and allopurinol #Normocytic anemia: Likely chronic disease. Iron studies normal. -Continue to monitor #Chronic medical problem: -Continue home medications DVT prophylaxis with heparin Consistent carbohydrate 2 diet Full code Problem List: 1. Gout 2. Radiculopathy Pain Ratin Pain Location: no Pain Goal: Remain pain free Pain Plan: see a/p Tomorrow's Labs & Rationales: no
[2017-12-20] MEDS ORDERED: ASPIRIN81 M4 PO ×2 (07:01→10:56)
[2017-12-20] MEDS ORDERED: COLCHICINE0.6 M2 PO ×2 (07:02→10:56)
[2017-12-20] MEDS ORDERED: ALLOPURINOL100 M1 PO ×2 (07:02→10:56)
--- NOTE | 2017-12-20 07:03 | Patient Discharge Instructions ---
Discharge Instructions General Discharge Information You were seen/treated for: Gout, kidney injury, lumbosacral radiculopathy Watch for these problems: Fever, chest pain, shortness of breath. Special Instructions: Please take all medications as directed. Please follow-up with primary care. Please avoid taking all NSAIDs (Aleeve, Advil, Motrin, etc.). Diet Continue normal diet: No Recommended Diet: Heart Healthy Activity Full Activity/No Limits: Yes Acute Coronary Syndrome Inclusion Criteria At DC or during hospital stay patient has or had the following: ACS DIAGNOSIS No Discharge Core Measures Meds if any: Prescribed or Continued at Discharge Meds if any: NOT Prescribed or Continued at Discharge Congestive Heart Failure Inclusion Criteria At DC or during hospital stay patient has or had the following: CHF DIAGNOSIS No Discharge Core Measures Meds if any: Prescribed or Continued at Discharge Meds if any: NOT Prescribed or Continued at Discharge Cerebrovascular accident Inclusion Criteria At DC or during hospital stay patient has or had the following: CVA/TIA Diagnosis No Discharge Core Measures Meds if any: Prescribed or Continued at Discharge Meds if any: NOT Prescribed or Continued at Discharge Venous thromboembolism Inclusion Criteria VTE Diagnosis No VTE Type NONE VTE Confirmed by (Test) NONE Discharge Core Measures - Per Current guidelines, there needs to be overlap - treatment for the first 5 days of Warfarin therapy. - If discharged on Warfarin prior to 5 days of - overlap therapy, the patient will need to be - assessed for post discharge needs including - *Post discharge parental anticoagulation - *Warfarin and/or parental anticoagulation education - *Follow up date to check INR post discharge At least 5 days overlap therapy as Inpatient No Meds if any: Prescribed or Continued at Discharge Note: Overlap Therapy is Warfarin and Anticoagulant Meds if any: NOT Prescribed or Continued at Discharge
--- NOTE | 2017-12-20 07:37 | ECHOCARDIOGRAM REPORT ---
APRYL MUÑIZ Age: 72 : 1945 Gender: M Exam Date: 12/19/2017 11:13 Exam Location: [address] [place] [address] Ht (in): 73 Wt (lb): 258 BSA: 2.49 BP: 110 / 56 Ordering Physician: Nae Dunn MD Referring Physician: Sadi Prieto MD, PhD Technologist: gloria carrollaris Room Number: 214 Indications: SHORTNESS OF BREATH Rhythm: Sinus Technical Quality: fair FINDINGS Left Ventricle Normal left ventricular size, wall thickness and systolic function with no obvious regional wall motion abnormalities. Normal left ventricular diastolic filling pattern for age. The ejection fraction is visually estimated at 60%. Right Ventricle The right ventricle is normal in size and function. Right Atrium The right atrium is normal in size. Left Atrium The left atrium is mildly enlarged. The interatrial septum is intact. Mitral Valve The mitral valve is normal in structure and function. There is trace mitral regurgitation. Aortic Valve Structurally normal aortic valve without significant sclerosis or stenosis. There is no aortic regurgitation. Tricuspid Valve The tricuspid valve is normal in structure and function. There is trace tricuspid regurgitation. Pulmonary artery systolic pressure is normal. Pulmonic Valve Structurally normal pulmonic valve. There is no pulmonic regurgitation. Pericardium Normal pericardium without effusion. No pleural effusion. Great Vessels Normal aortic root dimension. The aortic arch and great vessels are well seen and are normal. CONCLUSIONS 1. Normal EF of 60%. 2. Mild left atrial enlargement. 3. Trace mitral regurgitation. 4. Trace tricuspid regurgitation. Sadi Prieto M.D. (Electronically Signed) Final Date: 20 December 2017 07:36 MEASUREMENTS (Male / Female) Normal Values 2D ECHO LV Diastolic Diameter PLAX 4.5 cm 4.2 - 5.9 / 3.9 - 5.3 cm LV Systolic Diameter PLAX 3.1 cm 2.1 - 4.0 cm LV Fractional Shortening PLAX 31.1 % 25 - 46 % LV Ejection Fraction 2D Teich 59.0 % IVS Diastolic Thickness 1.1 cm LVPW Diastolic Thickness 0.9 cm LV Relative Wall Thickness 0.4 LVOT Diameter 2.1 cm Aortic Root Diameter 3.3 cm LA Systolic Diameter LX 4.3 cm 3.0 - 4.0 / 2.7 - 3.8 cm LA Volume 65.0 cm 18 - 58 / 22 - 52 cm Ascending Aorta Diameter 3.2 cm DOPPLER AV Peak Velocity 136.0 cm/s AV Peak Gradient 7.4 mmHg AV Mean Velocity 89.9 cm/s AV Mean Gradient 4.0 mmHg AV Velocity Time Integral 29.7 cm LVOT Peak Velocity 61.7 cm/s LVOT Peak Gradient 1.5 mmHg LVOT Mean Velocity 48.5 cm/s LVOT Mean Gradient 1.0 mmHg LVOT Velocity Time Integral 13.8 cm LVOT Stroke Volume 47.8 cm AV Area Cont Eq vti 1.6 cm AV Area Cont Eq pk 1.6 cm MV Peak Velocity 127.0 cm/s MV Peak Gradient 6.5 mmHg MV Mean Velocity 72.7 cm/s MV Mean Gradient 2.0 mmHg Mitral E Point Velocity 113.0 cm/s Mitral A Point Velocity 81.9 cm/s Mitral E to A Ratio 1.4 MV Deceleration Time 299.0 ms TR Peak Velocity 263.0 cm/s TR Peak Gradient 27.7 mmHg Right Atrial Pressure 5.0 mmHg Pulmonary Artery Systolic Pressu 32.7 mmHg Right Ventricular Systolic Press 32.7 mmHg PV Peak Velocity 96.5 cm/s PV Peak Gradient 3.7 mmHg PV Mean Velocity 69.8 cm/s PV Mean Gradient 2.0 mmHg PV Velocity Time Integral 23.3 cm LV E' Lateral Velocity 9.6 cm/s Mitral E to LV E' Lateral Ratio 11.8 LV E' Septal Velocity 8.8 cm/s Mitral E to LV E' Septal Ratio 12.9
[2017-12-20 08:23] VITALS: BP 128/68
[2017-12-20 08:47] LABS: ABSOLUTE BASOPHIL COUNT 0.1 /CUMM (0.0-0.2); ABSOLUTE EOSINOPHIL COUNT 0.5 /CUMM (0.0-0.7); ABSOLUTE GRANULOCYTE CT 3.9 /CUMM (1.4-6.5); ABSOLUTE LYMPH COUNT 5.8 /CUMM (1.2-3.4); ABSOLUTE MONOCYTE COUNT 0.8 /CUMM (0.10-0.60); EOSINOPHIL % 4.9 % (0-5); GRANULOCYTE % 34.8 % (42.2-75.2); HEMATOCRIT 34.9 % (42-52); MEAN CORPUSCULAR HGB 27.7 PG (27.0-31.0); MEAN CORPUSCULAR HGB CONC 33.1 G/DL (33.0-37.0); MEAN CORPUSCULAR VOLUME 83.6 FL (80.0-94.0); MEAN PLATELET VOLUME 9.7 FL (7.4-10.4); PLATELET COUNT 264 /CUMM (130-400); RBC DISTRIBUTION WIDTH 15.2 % (11.5-14.5); RED BLOOD CELL CT 4.18 /CUMM (4.70-6.10)
[2017-12-20 10:14] LABS: WHITE BLOOD CELL COUNT 11.1 /CUMM (4.8-10.8)
[2017-12-20] MEDS ORDERED: TRAMADOL HCL50 M1 PO ×2 (10:50→10:56)
[2017-12-20] MEDS ORDERED: GABAPENTIN300 M2 PO ×2 (10:50→10:56)
--- NOTE | 2017-12-20 10:57 | Discharge Summary ---
Visit Information Visit Dates Admission Date: 12/17/17 Discharge Date: 12/20/17 Hospital Course Course Attending Physician: Nolvia Aranda MD Primary Care Physician: Ever Jones APRN [facility] Course: Mr. Allen is a 72-year-old male with past medical history of coronary artery disease status post stents followed by Dr. Prieto, hypertension, hyperlipidemia , gout, diabetes mellitus complicated by peripheral neuropathy who presented with pain in his right leg. On presentation, vital signs were T 98.0, HR 63, RR 20, BP 108/64, saturating 93 percent on room air. Laboratories were significant for white blood cell count 16.7, 1 band, hemoglobin 12.2, MCV 84.6, chloride 92, B1 70, creatinine 2.1 ( baseline 1.4 phosphorus sees, normal LFTs. Chest x-ray was negative. Ultrasound did not show DVT. He was admitted to general medicine and treated for the following problems: 1. NSAID-induced nephropathy in setting of stage III chronic disease 2. Acute lumbosacral radiculopathy 3. Acute gout 4. Leukocytosis 5. Normocytic anemia #NSAID-induced nephropathy in setting of stage III chronic kidney disease: Patient reported taking heavy doses of naproxen. He is also on diuretics and hasn't been drinking as well recently. FENA 1.8. Nephrology evaluated and thinks this was likely CKD stage 3 in the setting of NSAID induced nephropathy. Renal ultrasound showed no obstruction. TTE showed ejection fraction 60%. He can be discharged today. He should continue to avoid NSAIDs and follow-up with nephrology as an outpatient. #Acute lumbosacral radiculopathy: Patient seems to have a history of back pain with imaging of his back many years ago. However this seemed like an acute worsening. He did not have any saddle anesthesia but he did have leukocytosis. CT imaging did not show any acute cord compression. His pain was controlled. The patient was started on higher dose gabapentin in addition to tramadol. #Acute gout: Patient had erythematous left great toe with pain and history of gout. X-ray did not show any soft tissue changes. Uric acid was elevated. He was started on allopurinol and given colchicine when necessary for pain. #Normocytic anemia: Likely chronic disease. Iron studies were normal. #Chronic medical problem: His other home medications were continued. Allergies: Coded Allergies: No Known Allergies (12/13/16) Disposition Summary Disposition Principal Diagnosis: 1. 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 Acute lumbosacral radiculopathy 3. Acute gout 4. Leukocytosis 5. Normocytic anemia Discharge Disposition: home or self care Discharge Instructions General Discharge Information Code Status: Full Code Patient's Diet: Heart healthy, diabetic Patient's Activity: As tolerated Follow-Up Instructions/Appts: Please take all medications as directed. Please follow-up with primary care and nephrology. Please avoid all NSAIDs medications. Medications at Discharge Discharge Medications: Stop taking the following medications: Oxycodone HCl (Oxycodone HCl) 10 MG TABLET ORAL Q4-6H as needed for PAIN Gabapentin (Neurontin) 300 MG CAPSULE ORAL DAILY Aspirin (Ecotrin*) 325 MG TABLET.DR ORAL Every night Naproxen Sodium (All Day Relief) 220 MG TABLET ORAL Q8-12H as needed for PAIN/ INFLAMMATION Continue taking these medications: Metformin HCl (Metformin HCl) 500 MG TABLET 1 Tablet ORAL TWICE DAILY Days = 30 Comments: NOT GIVEN IN HOSPITAL Omeprazole (Omeprazole) 40 MG CAPSULE.DR 1 Capsule ORAL DAILY Days = 90 Comments: NOT GIVEN IN HOSPITAL Atorvastatin Calcium (Atorvastatin Calcium) 40 MG TABLET 1 Tablet ORAL DAILY Days = 30 Comments: Last Taken: 12/19/17 Time: 4:30 PM Clopidogrel Bisulfate (Clopidogrel) 75 MG TABLET 1 Tablet ORAL DAILY Days = 30 Comments: Last Taken: 12/20/17 Time: 8:30 AM Lisinopril/Hydrochlorothiazide (Lisinopril-Hctz 20-25 MG Tab) 20 MG-25 MG TABLET 1 Tablet ORAL TWICE DAILY Comments: NOT GIVEN IN HOSPITAL Melatonin (Melatonin) 5 MG CAPSULE 1 Capsule ORAL Every night as needed for SUPPLEMENT Qty = 30 Comments: NOT GIVEN IN HOSPITAL Adams-3 Fatty Acids (Super Adams-3) 1,000 MG CAPSULE 1 Capsule ORAL THREE TIMES DAILY Comments: NOT GIVEN IN HOSPITAL Multiple Vitamin (Multivitamins) 1 EACH TABLET 1 Tablet ORAL DAILY Comments: NOT GIVEN IN HOSPITAL Polyethylene Glycol 3350 (Miralax) 17 GRAM POWD.PACK 1 Packet ORAL DAILY as needed for GI Instructions: dissolve in water Comments: Last Taken: 12/20/17 Time: 8:30 AM Gluc Hunter/MSM/Magnesium/Vit C (Glucosamine Complex-MSM Cap) 1 EACH CAPSULE 2 Capsule ORAL DAILY Qty = 30 Comments: NOT GIVEN IN HOSPITAL Buspirone HCl (Buspirone HCl) 5 MG TABLET 1-2 Tablet ORAL DAILY as needed for ANXIETY Qty = 30 Comments: NOT GIVEN IN HOSPITAL Metoprolol Succinate (Metoprolol Succinate) 25 MG TAB 1 Tablet ORAL DAILY Days = 90 Comments: Last Taken: 12/20/17 Time: 8:30 PM Furosemide (Furosemide) 40 MG TABLET 1 Tablet ORAL Every Morning Days = 30 Comments: NOT GIVEN IN HOSPITAL Sennosides (Senna) 8.6 MG TABLET 1 Tablet ORAL TWICE DAILY Comments: Last Taken: 12/20/17 Time: 8:30 AM Menthol (Icy Hot No Mess) 16 % LIQUID 1 Unit On the skin DAILY as needed for PAIN Qty = 1 Comments: NOT GIVEN IN HOSPITAL Calcium (Elemental-Fr Calcarb) (Tums Ultra) 400 MG CALCIUM (1,000 MG) TAB.CHEW 1 Tablet ORAL DAILY as needed for GI Qty = 30 Comments: NOT GIVEN IN HOSPITAL Start taking the following new medications: Colchicine (Colchicine) 0.6 MG TABLET 600 Microgram ORAL DAILY as needed for Gout pain Qty = 30 No Refills Instructions: . Comments: Last Taken: 12/20/17 Time: 8:30 AM Allopurinol (Allopurinol) 100 MG TABLET 100 Milligram ORAL DAILY Qty = 30 No Refills Instructions: . Comments: Last Taken: 12/20/17 Time: 8:30 AM Gabapentin (Gabapentin) 300 MG CAPSULE 1 Capsule ORAL THREE TIMES DAILY Qty = 90 No Refills Instructions: . Comments: Last Taken: 12/20/17 Time: 8:30 AM Tramadol HCl (Tramadol HCl) 50 MG TABLET 1 Tablet ORAL THREE TIMES A DAY NEEDED as needed for Severe Pain Qty = 20 No Refills Instructions: . Comments: NOT GIVEN IN HOSPITAL Aspirin (Aspirin*) 81 MG TAB.CHEW 1 Tablet ORAL DAILY Qty = 30 No Refills Instructions: . Comments: NOT GIVEN IN HOSPITAL Copies To: Ever Jones APRN; Roxana IGNACIO,Jace Pantoja; Ida IGNACIO PHD,Sadi Estevez
== END 2017-12-20 13:37 | DRG 684 ==
LOC: ERH 14:09 → ERHI 17:54 → 2NB 17:54 → ENRESERV 18:23 → ENTRNSPT 19:36 → EDTRNSPTSTS 20:00 → EDTRNSPT 20:00 → 2NB 20:15 → CMPTRNSPT 20:26 → EDTRNSPT 20:26 → 2NB 20:48 → ENPENDDIS 12-20 10:58 → ENTRNSPT 12-20 12:18 → EDTRNSPT 12-20 12:26 → EDTRNSPTSTS 12-20 12:26 → CMPTRNSPT 12-20 13:08 → 2NB 12-20 13:37
PROVIDERS: Internal Medicine; Physician Assistant
DX: N17.9 Acute kidney failure, unspecified (principal); E11.22 Type 2 diabetes mellitus with diabetic chronic kidney disease; E11.42 Type 2 diabetes mellitus with diabetic polyneuropathy; D64.9 Anemia, unspecified; S61.412A Laceration without foreign body of left hand, initial encounter; D72.829 Elevated white blood cell count, unspecified; E66.9 Obesity, unspecified; I12.9 Hypertensive chronic kidney disease with stage 1 through stage 4 chronic kidney disease, or unspecified chronic kidney disease; N18.3 Chronic kidney disease, stage 3 (moderate); Z79.4 Long term (current) use of insulin; Z79.84 Long term (current) use of oral hypoglycemic drugs; I25.10 Atherosclerotic heart disease of native coronary artery without angina pectoris; M54.16 Radiculopathy, lumbar region; Z68.34 Body mass index [BMI] 34.0-34.9, adult; Z98.61 Coronary angioplasty status; E78.5 Hyperlipidemia, unspecified; Z79.82 Long term (current) use of aspirin; K21.9 Gastro-esophageal reflux disease without esophagitis; K59.03 Drug induced constipation; W18.30XA Fall on same level, unspecified, initial encounter; M54.5 Low back pain; L53.8 Other specified erythematous conditions; N40.0 Benign prostatic hyperplasia without lower urinary tract symptoms; M10.071 Idiopathic gout, right ankle and foot; N14.2 Nephropathy induced by unspecified drug, medicament or biological substance; T39.395A Adverse effect of other nonsteroidal anti-inflammatory drugs [NSAID], initial encounter
CPT/HCPCS: 2NBP; 84133; 84300; 36592; 71046; 73630-LT; 76775; 81003; 82436; 82570; 93005; 93010; 93306; 93970; 97110-GO; 97116-GO; 97161-GP; 97530-GO; J1644